=== PATIENT | female | born 1955 | race Hispanic/Latino ===

== ENCOUNTER 2017-02-02 08:16 | Day surgery (SDC) | payer OTHER ==
[2017-01-22 10:55] VITALS: BMI 24.4
[2017-02-02 08:47] VITALS: O2SAT 100
[2017-02-02] MEDS ORDERED: Lidocaine 2% Jelly (30 ml) ONE (09:45)
[2017-02-02 10:48] VITALS: BP 140/88; PULSE 77; RESP 19; TEMP 98.5
== END 2017-02-02 11:10 | disposition home or self-care (01) ==
LOC: ENDO 08:16 → OPSURG 08:16
PROVIDERS: ATTEND Internal Medicine Gastroenterology
DX: K62.1 Rectal polyp (principal); K57.30 Diverticulosis of large intestine without perforation or abscess without bleeding; K64.4 Residual hemorrhoidal skin tags; K64.8 Other hemorrhoids; K63.89 Other specified diseases of intestine